=== PATIENT | female | born 1970 | race Hispanic/Latino ===

== ENCOUNTER 2018-10-16 17:18 | Emergency (ER) | payer SELFPAY ==
[~2018-10-16] VITALS: Ht 152.4 cm; Wt 76.7 kg
== END 2018-10-16 17:57 | disposition left against medical advice (07) ==
LOC: FSED 17:18
DX: G44.011 Episodic cluster headache, intractable (principal)

== ENCOUNTER 2019-09-23 10:27 | Emergency (ER) | payer SELFPAY ==
[~2019-09-23] VITALS: Ht 152.4 cm; Wt 74.8 kg
[2019-09-23] MEDS ORDERED: ONDANSETRON HCL 4 MG ORAL DISINTEGRATING TAB PO ONE (10:45)
[2019-09-23] MEDS ORDERED: DEXAMETHASONE SOD PHOS 10 MG/1 ML VIAL IM ONE (10:45)
--- NOTE | 2019-09-23 10:49 | Emergency Department Note ---
History of Present Illnes History of Present Illness Chief Complaint: COVID PUI History of Present Illness This is a 49 year old female exposed to COVID 19, c/o coughing, SOB for 1 wk. . Arrival Mode: Car Onset (how long ago): week(s) Severity: moderate Duration (how long): week(s) Progression: waxing and waning Relieving factors: none Exacerbating factors: none Treatments prior to arrival: none Past Medical/Family History Physician Review I have reviewed the patient's past medical and family history. Any updates have been documented here. Past Medical History Recent Fever: No Clinical Suspicion of Infectio: No New/Unexplained Change in Ment: No Past Medical History: None Past Surgical History: Hysterectomy, Social History Smoking Cessation: Former smoker Alcohol Use: None Other Last Tetanus: UNKNOWN Any Pre-Existing Lines (PICC,: No Review of Systems Review of Systems Constitutional: Reports as per HPI, Reports malaise EENTM: Reports no symptoms Cardiovascular: Reports no symptoms, Reports chest pain Respiratory: Reports chest congestion, Reports pain with cough, Reports dyspnea Gastrointestinal: Reports no symptoms Genitourinary: Reports no symptoms Musculoskeletal: Reports no symptoms Integumentary: Reports no symptoms Neurological: Reports no symptoms Psychological: Reports no symptoms Endocrine: Reports no symptoms Hematological/Lymphatic: Reports no symptoms Physical Exam Related Data Allergies: Coded Allergies: No Known Allergies (Unverified , 10/16/18) Physical Exam CONSTITUTIONAL Constitutional: Present well-developed, Present well-nourished, Present obese, Present distressed HENT HENT: Present normocephalic, Present atraumatic, Present oropharynx clear/moist, Present nose normal HENT L/R: Present left ext ear normal, Present right ext ear normal EYES Eyes: Reports PERRL, Reports conjunctivae normal NECK Neck: Present ROM normal PULMONARY Pulmonary: Present effort normal, Present breath sounds normal CARDIOVASCULAR Cardiovascular: Present regular rhythm, Present heart sounds normal, Present capillary refill normal, Present tachycardia GASTROINTESTINAL Abdominal: Present soft, Present nontender, Present bowel sounds normal GENITOURINARY Genitourinary: Present exam deferred SKIN Skin: Present warm, Present dry MUSCULOSKELETAL Musculoskeletal: Present ROM normal NEUROLOGICAL Neurological: Present alert, Present oriented x 3, Present no gross motor or sensory deficits PSYCHOLOGICAL Psychological: Present mood/affect normal, Present judgement normal Results Laboratory Lab results reviewed: Yes Assessment & Plan Medical Decision Making MDM covid 19 Assessment & Plan Final Impression: (1) COVID-19 virus infection (2) Pneumonia Depart Disposition: HOME, SELF-[facility]PC Meds Active Scripts Benzonatate (TESSALON PERLE) 100 Mg Capsule, 1 TAB PO QID PRN for cough, #20 Prov:OSWALD ANDERS MD 09/23/19 Azithromycin (Z-ANG) 250 Mg Tablet, 1 PKG PO DIRECTED, #1 PKG 0 Refills Prov:OSWALD ANDERS MD 09/23/19 Diphenhydra/Phenyleph/Acetamin (THERAFLU COLD AND COUGH POWDER) 1 Each Powd.pack, 1 PACKET PO Q6H PRN for fever and or pain, #12 Prov:OSWALD ANDERS MD 09/23/19 Dexamethasone (DEXAMETHASONE) 6 Mg Tablet, 1 TAB PO DAILY, #7 Prov:OSWALD ANDERS MD 09/23/19 Medications in the ED Ondansetron HCl 4 mg ONCE ONCE PO ; Start 09/23/19 at 10:45; Stop 09/23/19 at 10:46; Status UNV Dexamethasone Sodium Phosphate 10 mg ONCE ONCE IM ; Start 09/23/19 at 10:45; Stop 09/23/19 at 10:46; Status UNV OSWALD ANDERS MD Sep 23, 2019 10:49
[2019-09-23] MEDS ORDERED: ONDANSETRON HCL 4 MG ORAL DISINTEGRATING TAB ONE (11:10)
[2019-09-23] MEDS ORDERED: DEXAMETHASONE SOD PHOS 10 MG/1 ML VIAL ONE (11:11)
[2019-09-23] MEDS ORDERED: DEXAMETHASONE6 MG PO (11:14)
[2019-09-23] MEDS ORDERED: TESSALON PERLE100 MG PO (11:14)
[2019-09-23] MEDS ORDERED: AZITHROMYCIN250 MG PO (11:14)
[2019-09-23] MEDS ORDERED: THERAFLU COLD1 EAC4 PO (11:14)
--- NOTE | 2019-09-23 11:23 | Diagnostic Imaging Report ---
EXAMINATION: CXR 1 VEW - HOPD INDICATION: Shortness of breath COMPARISON: None FINDINGS: LINES/TUBES:None LUNGS:The lungs are moderately inflated. Patchy peripheral left lung base opacities. PLEURA:No pleural effusion or pneumothorax. MEDIASTINUM:The cardiomediastinal silhouette appears normal in size and shape. BONES/SOFT TISSUES:No acute osseous injury. ABDOMEN:No free air under the diaphragm. IMPRESSION: Patchy peripheral left lung base opacities may represent pneumonia in the proper clinical setting, including of viral etiologies. Signed by: Santiago Menendez MD on 09/23/2019 11:19 AM
== END 2019-09-23 11:53 | disposition home or self-care (01) ==
LOC: FSED 11:18
DX: U07.1 COVID-19 (principal); J18.9 Pneumonia, unspecified organism; R05 Cough
CPT/HCPCS: 71045; 99283; J1100; Q0162

== ENCOUNTER 2024-05-18 15:34 | Emergency (ER) | payer OTHER, SELFPAY ==
[~2024-05-18] VITALS: Ht 152.4 cm; Wt 75.4 kg
[~2024-05-18 15:34] MED LIST: AZITHROMYCIN250 MG PO; DEXAMETHASONE6 MG PO; TESSALON PERLE100 MG PO; THERAFLU COLD1 EAC4 PO
[2024-05-18] MEDS: KETOROLAC TROMETHAMINE 30 MG/ML VIAL IV STA (16:25)
[2024-05-18] MEDS: SODIUM CHLORIDE 0.9% 1000ML 1,000 ML IV ONE ×2 (16:25→17:54)
[2024-05-18] MEDS: ONDANSETRON HCL INJ 2MG/ML 2ML 2 MG/ML VIAL IV STA (16:25)
[2024-05-18 17:28] VITALS: TEMP 99.4
[2024-05-18] MEDS: ACETAMINOPHEN 325 MG TAB PO ONE (17:54)
[2024-05-18 18:27] VITALS: PULSE 107; O2SAT 67
[2024-05-18] MEDS ORDERED: METFORMIN HCL500 MG PO (18:28)
== END 2024-05-18 18:44 | disposition home or self-care (01) ==
LOC: FSED 15:43
DX: R05.9 Cough, unspecified (principal); J10.1 Influenza due to other identified influenza virus with other respiratory manifestations; E11.65 Type 2 diabetes mellitus with hyperglycemia; Z11.52 Encounter for screening for COVID-19
CPT/HCPCS: 0223U; 36415; 80048; 82948; 87400; 99283; J1885; J2405; J7030